=== PATIENT | female | born 1960 | race Caucasian/White ===

== ENCOUNTER 2018-07-31 07:01 | Inpatient (IN) ==
--- NOTE | 2018-07-10 15:24 | Anesthesiology Consultation ---
Date of Service July 10, 2018 Assessment & Plan Chart Review Chart Review: Acceptable Risk for Surgery (PENDING REVIEW OF PREOP TESTING (LABS , EKG, CXR)) and Patient seen in Pre Admission Testing Teaching & Discussion Pre-Anesthesia Teaching/Discussion Notes: Instructed NPO after midnight before surgery,except medications with 15 cc of water. Medication instructions provided according to the PAT guidelines. History Surgery Operation Date: 07/31/18 10:05 Proposed Procedures p L2-L5 Decompression and Fusion - Alex Love DO Height/Weight Height: 5 ft 1 in Weight: 58.6 kg Allergies Allergy/AdvReac Type Severity Reaction Status Date / Time codeine AdvReac Mild N/V Verified 07/10/18 15:36 Penicillins AdvReac Mild DYSPEPSIA Verified 07/10/18 15:36 Medications Home Medications Medication Instructions Recorded Confirmed Last Taken acetaminophen 500 mg PO QID PRN 07/04/18 07/04/18 Unknown naproxen sodium [Aleve] 220 - 440 mg PO BID PRN 07/04/18 07/04/18 Unknown Past Medical History Medical History Spondylolisthesis Thyroid goiter ENT MONITORING Past Surgical History Surgical History History of bunionectomy of both great toes BUNIONECTOMY/REVISION History of lumpectomy of left breast Hx of appendectomy Hx of removal of cyst BREAST Past Anesthesia History No Hx of Anesthesia Complications and No Family Hx of Anesthesia Complications History of PONV No Motion Sickness Screening History of Motion Sickness: No Social History Smoking Status: Current every day smoker tobacco type: cigarettes Smoking cigarettes per day: 1 CIGARETTE/DAY (TRYING TO QUIT; PRIOR HEAVIER USE) X 25 YEARS Do You Dip or Chew Tobacco: No Hx Alcohol Use: Yes alcohol intake frequency: holidays/special occasions only Hx Substance Use: No Exercise / Class Metabolic Activity II 4-5 Yardwork/Stairs/Walk up hill Review of Systems Rare heartburn. URI symptoms improved. Patient denies chest pain, shortness of breath, dyspnea on exertion, wheezing, palpitations. Physical Exam Vital Signs VITALS BP 123/79 P 63 TEMP 97.9 SP02 97%RA RESP 18 Full neck and c-spine range of motion. Full TMJ range of motion. TMD 3 finger breaths Mallampati Score 3 Dentition: full dentures on upper Lungs: clear throughout to auscultation Cardiac: regular rate and rhythm, no murmurs noted Spine: normal Carotid arteries: negative bruit Extremities: no edema
--- NOTE | 2018-07-10 15:25 | PAT Medication Instructions ---
Medication Instructions Date of Service July 10, 2018 Home Medications acetaminophen 500 mg PO QID PRN naproxen sodium [Aleve] 220 - 440 mg PO BID PRN ASK your surgeon for instructions naproxen sodium [Aleve] 220 - 440 mg PO BID PRN Take morning of surgery With a small sip of water, OTHERWISE NOTHING TO EAT OR DRINK AFTER MIDNIGHT: acetaminophen 500 mg PO QID PRN (okay to take up to 4 hours prior to surgery if needed) Other Notes If you have any questions please call us at [phone] or [phone] or [phone] or [phone]
[2018-07-10 15:57] LABS: Basophils # (auto) 0.04 K/uL (0-0.2); Basophils % (auto) 0.5 %; Eosinophils # (auto) 0.41 K/uL (0-0.5); Eosinophils % (auto) 5.1 %; Hematocrit (blood only) 37.3 % (37-47); Hemoglobin 12.3 g/dL (12.0-16.0); Immature Granulocytes # (auto) 0.01 K/uL (0.00-0.02); Immature Granulocytes % (auto) 0.1 %; Lymphocytes # (auto) 3.42 K/uL (1.2-3.4); Lymphocytes % (auto) 42.6 %; Mean Corpuscular Volume 90.1 fL (80-100); Mean Platelet Volume 9.8 fL (7.4-10.4); Monocytes # (auto) 0.56 K/uL (0.11-0.59); Neutrophils # (auto) 3.58 K/uL (1.4-6.5); Neutrophils % (auto) 44.7 %; Platelet Count 280 K/uL (130-400); RDW Coefficient of Variation 14.4 % (11.5-14.5); RDW Standard Deviation 47.3 fL (36.4-46.3); Red Blood Count 4.14 M/uL (4.2-5.4); White Blood Count 8.02 K/uL (4.8-10.8)
--- NOTE | 2018-07-10 16:07 | XRay Report ---
XR chest Pre-admission PA/Lat CLINICAL HISTORY: Preoperative chest COMPARISON STUDY: No previous studies for comparison. FINDINGS: The cardiac and mediastinal contours are normal. There is no evidence of focal pulmonary co nsolidation. There is no evidence of failure. No pleural effusions are visualized.[ IMPRESSION: No active disease in the chest. Electronically signed by: Jermaine Funez M.D. 07/10/2018 4:05 PM
[2018-07-10 16:09] LABS: Partial Thromboplastin Ratio 1.2; Partial Thromboplastin Time 30.8 Seconds (21.0-31.0); Prothrombin Time 10.3 Seconds (9.0-12.0)
[2018-07-10 16:23] LABS: Appearance Urine Clear (Clear); Bacteria Urine Automated Negative (Negative); Bilirubin Urine Negative (Negative); Color Urine Yellow; Epithelial Cell Urine Auto >30 /lpf (0-5); Glucose Urine UA Negative (Negative); Ketones Urine Negative (Negative); Leukocyte Esterase Urine 2+ (Negative); Nitrite Urine Negative (Negative); Protein Urine Negative (Negative); Specific Gravity Urine 1.021 (1.000-1.030); Urobilinogen Urine Negative (Negative); pH Urine 6.5 (4.5-7.5)
[~2018-07-31 07:01] MED LIST: ACETAMINOPHEN 500 MG TAB PO SCH; CLINDAMYCIN 600 MG/54 ML BAG IV SCH; CeleBREX 200 MG CAP PO SCH; GABAPENTIN 300 MG x 2 PO SCH; LR 15ML/HR IV SCH
[2018-07-31] MEDS ORDERED: HYDROmorphone INJ 1 MG/ML SYRINGE IV PRN (08:37)
[2018-07-31] MEDS ORDERED: ATROPINE SULFATE 0.1 MG/ML 10ML SYR IV PRN (08:37)
[2018-07-31] MEDS ORDERED: ONDANSETRON INJ 2 MG/ML 2 ML VIAL IV PRN ×2 (08:37→13:33)
--- NOTE | 2018-07-31 09:08 | History & Physical Bridge Note ---
Date of Service July 31, 2018 History & Physical Bridge Note I have examined the patient, reviewed the History & Physical and in the interval since the performance of the History & Physical I have noted the following changes of clinical significance: no changes noted
--- NOTE | 2018-07-31 09:09 | History & Physical Report ---
Date of Service July 31, 2018 Assessment & Plan (1) Neurogenic claudication due to lumbar spinal stenosis: Lumbar decompression and fusion L2-L5 Present on Admission?: Yes History of Present Illness Chief Complaint: Back and leg pain Primary Care Provider: Debi Tan This is a 58-year-old female that presents with chronic persistent back and leg pain. After failing extensive course of nonoperative care she is here for surgical intervention. Allergies Allergy/AdvReac Type Severity Reaction Status Date / Time codeine AdvReac Mild N/V Verified 07/31/18 07:52 Penicillins AdvReac Mild DYSPEPSIA Verified 07/31/18 07:52 Home Medications Home Medications Medication Instructions Recorded Confirmed Type acetaminophen 500 mg PO QID PRN 07/04/18 07/04/18 History naproxen sodium [Aleve] 220 - 440 mg PO BID PRN 07/04/18 07/31/18 History Past Med/Surg History Social History Current Living Situation: Spouse Other Information That Helps Us Care for You: No Feels Safe at Home: Yes Safety Concerns: Feels Safe At This Time Smoking Status: Current every day smoker Tobacco Type: cigarettes Cigarettes per Day: 1 CIGARETTE/DAY (TRYING TO QUIT; PRIOR HEAVIER USE) X 25 YEARS Do You Dip or Chew Tobacco: No Hx Alcohol Use: Yes Alcohol Intake Frequency: holidays/special occasions only Hx Substance Use: No Beliefs That Will Affect Care: None Preferred Language: Azeri Communication Ability: Effective Physical Exam 2 Vital Signs (Past 24 Hours): Last Vital Signs Temp 36.6 C 07/31/18 08:10 Pulse 85 07/31/18 08:10 Resp 18 07/31/18 08:10 BP 150/82 H 07/31/18 08:10 Pulse Ox 98 07/31/18 08:10 Results & Data Medications Administered Acetaminophen (Tylenol) 1,000 mg PO PREOP HARDIK Stop: 07/31/18 18:00 Last Admin: 07/31/18 07:55 Dose: 1,000 mg Celecoxib (Celebrex) 200 mg PO PREOP HARDIK Stop: 07/31/18 18:00 Last Admin: 07/31/18 07:55 Dose: 200 mg Gabapentin (Neurontin) 600 mg PO PREOP HARDIK Stop: 07/31/18 18:00 Last Admin: 07/31/18 07:55 Dose: 600 mg Lactated Ringer's (Lr) 1,000 mls @ 15 mls/hr IV .Q24H HARDIK Stop: 08/01/18 05:59 Last Admin: 07/31/18 07:56 Dose: 15 mls/hr
[2018-07-31] MEDS ORDERED: fentaNYL citrate 100 MCG/2 ML VIAL ONE (09:23)
[2018-07-31] MEDS ORDERED: MIDAZOLAM HCL 1 MG/ML 2ML VIAL ONE (09:23)
[2018-07-31] MEDS ORDERED: BACITRACIN INJ 50,000 UNIT VIAL ONE (09:24)
[2018-07-31] MEDS ORDERED: BUPIVACAINE/EPINEPHRINE 0.5% MPF 1:200,000 30 ML VIAL ONE (09:24)
[2018-07-31] MEDS ORDERED: KETAMINE HCL INJ 50 MG/ML 10 ML VIAL ONE (09:55)
[2018-07-31] MEDS ORDERED: LIDOCAINE HCL 2% 2 ML VIAL/AMP(20MG/ML) INFIL ONE (10:27)
[2018-07-31] MEDS ORDERED: ONDANSETRON INJ 2 MG/ML 2 ML VIAL ONE ×2 (10:27→10:54)
[2018-07-31] MEDS ORDERED: NEOSTIGMINE METHYLSULFATE 1 MG/ML 10ML VIAL ONE (10:27)
[2018-07-31] MEDS ORDERED: PROPOFOL IV EMULSION 10 MG/ML 20 ML VIAL IV ONE (10:27)
[2018-07-31] MEDS ORDERED: ROCURONIUM BROMIDE 10 MG/ML 5 ML VIAL ONE (10:27)
[2018-07-31] MEDS ORDERED: ePHEDrine sulfate 50 MG/ML SYR ONE (10:27)
[2018-07-31] MEDS ORDERED: GLYCOPYRROLATE 0.2 MG/ML VIAL ONE (10:27)
[2018-07-31] MEDS ORDERED: DEXAMETHASONE SOD INJ 4 MG/ML VIAL ONE (10:27)
[2018-07-31] MEDS ORDERED: PHENYLEPHRINE 100MCG/ML 5ML SYR ONE (10:27)
[2018-07-31] MEDS ORDERED: FLOSEAL HEMOSTATIC MATRIX 10ML TOP ONE (10:46)
[2018-07-31] MEDS ORDERED: HYDROmorphone INJ 2 MG/ML SYR/VIAL ONE (10:54)
--- NOTE | 2018-07-31 12:19 | Operative Report ---
Post Operative Report Pre & Post Diagnosis Operation Date: 07/31/18 09:05 Pre-Op Diagnosis: Lumbar spinal stenosis with spondylolisthesis and neurogenic claudication Post-Op Diagnosis: Same Procedure Operation Date: 07/31/18 09:05 Actual Procedures #1 lumbar decompression medial facetectomy foraminotomies L2-3 L3-4 L4-5. #2 posterior spinal fusion L2-3 L3-4 L4-5. #3 L3-4 L4-5 per #4 interbody fusion L4-5 per #5 place of titanium 12 x 22 mm cage L4-5. #6 placement of local autograft and posterior gutters per #7 placement Feese collagen sponge, mass graft posterior gutters and ostomy up in interbody space. Surgeon Alex Love DO Meat Products Demonstrator Alexsandra Pineda Estimated Blood Loss 200 Findings Consistent with Post-Op Diagnosis Specimens None Description of Procedure Patient was met with preoperatively case discussed all questions addressed. After informed consent obtained patient was taken to the operative suite underwent intubation and placed in a prone position the Yehuda table on top of the George frame. All bony prominences well-padded eyes inspected to ensure no external pressure placed upon the peer at this point the lumbar spine was prepped and draped in a sterile fashion. Sharp dissection with the assistance of Bovie cautery was performed down to and exposing the lamina and transverse process of L2 L3-L4-L5 bilaterally. From a caudal cephalad fashion complete laminectomy of L4 L3 and L2 was performed including bilateral medial facetectomies foraminotomies addressing severe stenosis. Pedicle screws were then placed in L2 L3-L4-L5 bilaterally with assistance of fluoroscopy the purposes annita placed. Through a transforaminal approach on the right complete discectomy of L4-5 was performed in plate coated to subcortical mean bone and a 12 x 22 mm titanium cage filled with ostium bone graft tapped in position. Rods were then locked in final position bilaterally. Transverse processes of L2 L3-L4-L5 bur to subcortical bleeding bone. Infuse collagen sponge mass graft local autograft placed in the posterior gutters. 15 round YVES drain inserted. Incision was then closed with 1 Vicryl fascia 2-0 Vicryl subcutaneous and 4-0 Monocryl for final skin closure. Steri-Strip sterile dressing placed patient will continue to PACU stable disc. Please note Alexsandra Pineda was present at the entire procedure involved in patient positioning complex portions of the surgery and final skin closure. I attest to the content of the Intraoperative Record and any orders documented therein. Any exceptions are noted below.
--- NOTE | 2018-07-31 12:49 | Fluoroscopy Report ---
LUMBAR SPINE, INTRAOPERATIVE FLUOROSCOPY HISTORY: L2-L5 decompression and fusion. FLUOROSCOPY TIME: 29 seconds. FINDINGS: Intraoperative fluoroscopy was provided for the lumbar spine. 2 fluoroscopic spot images we re obtained. Posterior decompression and fusion from L2 through L5 with pedicle screws and rods. The hardware appears intact. IMPRESSION: Fluoroscopy provided for a L2-L5 posterior decompression and fusion. Electronically signed by: Radhames Kohli M.D. 07/31/2018 12:48 PM
--- NOTE | 2018-07-31 13:12 | Anesthesiology Progress Note ---
Date of Service July 31, 2018 Anesthesia Post Procedure Vital Signs Vital Signs: Temp Pulse Pulse Resp BP Pulse Ox 07/31/18 13:05 91 H 13 124/71 98 07/31/18 12:55 84 16 126/62 100 07/31/18 12:45 69 17 116/63 98 07/31/18 12:35 36.6 C 108 H 18 121/70 100 07/31/18 08:10 36.6 C 85 18 150/82 H 98 Notes Mental Status: alert / awake / arousable Patient Amnestic to Procedure: Yes Nausea / Vomiting: adequately controlled Pain: adequately controlled Airway Patency, RR, SpO2: stable & adequate BP & HR: stable & adequate Hydration State: stable & adequate Anesthetic Complications: no major complications apparent
[2018-07-31] MEDS ORDERED: ONDANSETRON 4 MG TAB PO PRN (13:33)
[2018-07-31] MEDS ORDERED: ACETAMINOPHEN 500 MG TAB PO PRN ×2 (13:33)
[2018-07-31] MEDS ORDERED: MAGNESIUM HYDROXIDE SUSP 30 ML UDC PO PRN (13:33)
[2018-07-31] MEDS ORDERED: BISACODYL 10 MG SUPP PR PRN (13:33)
[2018-07-31] MEDS ORDERED: HYDROmorphone INJ 0.5 MG/0.5 ML SYR IV PRN (13:33)
[2018-07-31] MEDS ORDERED: DO NOT ADMINISTER PNEUMOCOCCAL VACCINE PRN (13:33)
[2018-07-31] MEDS ORDERED: LORazepam 0.5 MG/1 ML VIAL IV PRN (13:33)
[2018-07-31] MEDS ORDERED: DO NOT ADMINISTER FLU VACCINE PRN (13:33)
[2018-07-31] MEDS ORDERED: FAMOTIDINE 20 MG TAB PO PRN (13:33)
[2018-07-31] MEDS ORDERED: LORazepam 0.5 MG TAB PO PRN (13:33)
[2018-07-31] MEDS ORDERED: SOD PHOSPHATE/SOD BIPHOSPHATE ENEMA 132 ML BTL PR PRN (13:33)
[2018-07-31] MEDS ORDERED: METOCLOPRAMIDE HCL INJ 5 MG/ML 2 ML VIAL IV PRN (13:33)
[2018-07-31] MEDS ORDERED: ACETAMINOPHEN 1,000 MG/100 ML VIAL IV PRN (13:33)
[2018-07-31] MEDS ORDERED: PROMETHAZINE HCL 12.5 MG in SODIUM CHLORIDE 0.9% 50 ML IV PRN (13:33)
[2018-07-31] MEDS: LACTATED RINGER'S 1,000 ML IV SCH ×2 (13:59→20:22)
[2018-07-31] MEDS: KETOROLAC TROMETHAMINE 15 MG/ML VIAL IV SCH ×2 (16:09→22:05)
[2018-07-31] MEDS: CLINDAMYCIN 600 MG in DEXTROSE 5% 50 ML IV SCH ×2 (16:27→23:35)
[2018-07-31] MEDS: DOCUSATE SODIUM/SENNA 50/8.6MG TAB PO SCH (20:21)
[2018-07-31] MEDS: TRAMADOL HCL 50 MG TABLET PO PRN (20:25)
[2018-07-31] MEDS: OXYCODONE HCL IR 5 MG TAB (IMMEDIATE RELEASE) PO PRN (23:38)
[2018-08-01] MEDS: KETOROLAC TROMETHAMINE 15 MG/ML VIAL IV SCH ×2 (03:35→10:13)
[2018-08-01] MEDS: LACTATED RINGER'S 1,000 ML IV SCH (03:35)
[2018-08-01 05:46] LABS: Hemoglobin 8.5 g/dL (12.0-16.0); Immature Granulocytes # (auto) 0.06 K/uL (0.00-0.02); Immature Granulocytes % (auto) 0.3 %; Lymphocytes # (auto) 1.77 K/uL (1.2-3.4); Lymphocytes % (auto) 9.9 %; Mean Corpuscular Hgb Conc 32.7 g/dL (32-36); Mean Corpuscular Volume 88.7 fL (80-100); Mean Platelet Volume 8.6 fL (7.4-10.4); Monocytes # (auto) 1.29 K/uL (0.11-0.59); Monocytes % (auto) 7.2 %; Neutrophils # (auto) 14.84 K/uL (1.4-6.5); Neutrophils % (auto) 82.6 %; Platelet Count 205 K/uL (130-400); RDW Coefficient of Variation 14.3 % (11.5-14.5); RDW Standard Deviation 46.5 fL (36.4-46.3); Red Blood Count 2.93 M/uL (4.2-5.4); White Blood Count 17.96 K/uL (4.8-10.8)
[2018-08-01] MEDS: POLYETHYLENE (MIRALAX) 17 GM PACK PO SCH ×4 (05:52→23:16)
[2018-08-01 06:09] LABS: Ovalocytes 1+
[2018-08-01 06:15] LABS: BUN Creatinine Ratio 21.3 (10-20); Calcium 7.8 mg/dl (8.5-10.1); Est GFR (African American) 83.9; Est GFR (Non-African American) 72.4
[2018-08-01] MEDS: OXYCODONE HCL IR 5 MG TAB (IMMEDIATE RELEASE) PO PRN ×2 (07:38→20:23)
--- NOTE | 2018-08-01 08:59 | Orthopedic Progress Note ---
Date of Service August 01, 2018 Assessment & Plan (1) Neurogenic claudication due to lumbar spinal stenosis: This time we will continue physical therapy advance her bowel regimen anticipate discharge home this weekend. Present on Admission?: Yes (2) Acute blood loss as cause of postoperative anemia: Present on Admission?: No Subjective Patient's back pain is controlled leg symptoms are markedly improved. Physical Exam 2 Vital Signs (Past 24 Hours): Last Vital Signs Temp 36.9 C 08/01/18 06:56 Pulse 78 08/01/18 06:56 Resp 18 08/01/18 06:56 BP 95/53 L 08/01/18 06:56 Pulse Ox 94 08/01/18 06:56 Physical Exam: Patient is in the chair at the bedside. She has excellent strength testing. Appears comfortable.
--- NOTE | 2018-08-01 09:27 | Anesthesiology Progress Note ---
Date of Service August 01, 2018 Anesthesia Post Procedure Vital Signs Vital Signs: Temp Pulse Pulse Resp BP BP Pulse Ox 08/01/18 06:56 36.9 C 78 18 95/53 L 94 08/01/18 03:27 36.7 C 73 14 95/59 L 95 08/01/18 00:29 80 95/56 L 07/31/18 23:53 36.5 C 67 14 89/50 L 77/34 L 96 07/31/18 19:00 36.2 C L 103 H 18 121/68 100 07/31/18 16:31 36.4 C L 82 16 101/61 100 07/31/18 15:28 36.3 C L 87 18 92/47 L 100 07/31/18 14:36 92 H 18 97/55 L 100 07/31/18 13:56 61 18 94/55 L 99 07/31/18 13:34 36.3 C L 71 18 108/64 100 07/31/18 13:21 63 20 106/56 L 98 07/31/18 13:15 36.6 C 66 13 113/56 L 99 07/31/18 13:05 91 H 13 124/71 98 07/31/18 12:55 84 16 126/62 100 07/31/18 12:45 69 17 116/63 98 07/31/18 12:35 36.6 C 108 H 18 121/70 100 Pain Intensity Back: Pain Intensity: 6 Notes Mental Status: alert / awake / arousable Patient Amnestic to Procedure: Yes Nausea / Vomiting: adequately controlled Pain: adequately controlled Airway Patency, RR, SpO2: stable & adequate BP & HR: stable & adequate Hydration State: stable & adequate Anesthetic Complications: no major complications apparent and Pt Satisfied with anesthetic care
[2018-08-01] MEDS: DOCUSATE SODIUM/SENNA 50/8.6MG TAB PO SCH (20:23)
[2018-08-02] MEDS: ALUMINUM/MAGNESIUM SUSP 30 ML UDC PO PRN (02:20)
[2018-08-02] MEDS: POLYETHYLENE (MIRALAX) 17 GM PACK PO SCH ×2 (05:39→11:35)
--- NOTE | 2018-08-02 08:09 | Consultation ---
Date of Consultation August 02, 2018 Assessment & Plan (1) Hypotension: - Rechecked BP at beside without positive orthostatics: Supine was 112/69 , sitting BP pressure remained 106/68. - Infuse NSS 500 ml bolus now with decreased oral intake - Not on any BP limiting medications, last dose of narcotics was last evening around 1999. - Hgb dropped from 12.3 to 8.5, will recheck Hbg at 1400. - At this time no need for transfusion. If any worsening hypotension or symptoms consider transfusing - Consent, type and screen already obtained. (2) Acute blood loss as cause of postoperative anemia: - Hgb as above, monitoring Hgb at 1400. (3) Tobacco use: - Cessation encouraged, pt denies need for nicotine patch. (4) Spinal stenosis, lumbar region with neurogenic claudication: Status post lumbar decompression and fusion Postop management as per orthopedic surgery (5) Spondylolisthesis: - As per primary team - Agree with bowel regimen. Encourage oral intake. Antiemetics for nausea. - No anticoagulation in setting of spinal surgery - PT/OT consults. Pt has been up walking prior to this episode of hypotension without difficulty. (6) Constipation: - Continue mirilax, dulcolax and colace PO. Encourage ambulation provided that pts BP improves with fluid as above. Supervising Physician Co-Signing Physician Notes MAYANK Supervision Note: I personally saw and examined the patient. I verified all harris points and agree with MAYANK Ramon with the following exceptions and/or additions: Patient reports feeling very well and I saw her this evening. She denies chest pain shortness of breath, denies headache or lightheadedness. Denies abdominal pain or nausea. She is tolerating p.o. She has some pain in the back but it is manageable. She is not lightheaded with changes in position. Her blood pressures are much improved. Vitals reviewed Gen: AAOx3, NAD HEENT: Anicteric sclerae, EOMI CV: RRR no mgr nl S1S2 Pulm: CTAB no wcr Abd: +BS soft NT ND no masses or hernias Ext: No edema, 2+ DP pulses Skin: No rashes, warm/dry Repeat hemoglobin stable from this morning 8.4 This patient is a 58-year-old female with no significant past medical history except for current tobacco use and lumbar neurogenic claudication, here status post lumbar decompression and fusion. Consulted for hypotension which is likely secondary to acute blood loss anemia with a 4 g hemoglobin drop. Patient doing very well now, hemoglobin improved with normal saline bolus and instillation of IV fluids -Can stop IV fluids in the morning -Hospitalist service will sign off at this time. Please consult again if new or acute issues arise. Thank you. History of Present Illness Reason for Consultation: Hypotension Requesting Physician: Dr. Love Attending Physician: Alex Love, DO History of Present Illness This is a 58-year-old female with past medical history of thyroid goiter, breast cyst removal approximately 4 years ago: 1 from right-sided upper outer quadrant and 2 from left-sided lower quadrant, she is a chronic tobacco smoker of 25 years 1 pack/day and is trying to quit, and spondylolisthesis. She presented on 07/31/18 for elective lumbar decompression and fusion by Dr. Love. Prior to surgery the patient had a hemoglobin of 12.3, today upon recheck is found to be decreased at 8.4. She was noted to be hypotensive with BP of 76/41 in the left arm, and was rechecked in the right arm found to be 104/ 64. Medicine was consulted for hypotension. The patient was seen and examined this morning. Patient reports feeling well admits to feeling lightheaded upon sitting up. She has not been eating or drinking quite as well as her baseline, although is able to hold down fluids despite nausea. The patient has not vomited, and reports feeling some abdominal distention which she feels is secondary to no bowel movement x 2 days. She has been using oxycodone 5 mg for pain relief and last took this medication last night at 8 PM. At the bedside I rechecked her blood pressure while lying flat which was 112/69, immediately afterwards I then sat the patient up and her blood pressure remained 106/68. She denied feeling lightheaded that point. Allergies Allergy/AdvReac Type Severity Reaction Status Date / Time codeine AdvReac Mild N/V Verified 07/31/18 07:52 Penicillins AdvReac Mild DYSPEPSIA Verified 07/31/18 07:52 Home Medications Home Medications Medication Instructions Recorded Confirmed Type acetaminophen 500 mg PO QID PRN 07/04/18 07/04/18 History naproxen sodium [Aleve] 220 - 440 mg PO BID PRN 07/04/18 07/31/18 History oxycodone 5 mg PO Q4H PRN #30 tab 08/01/18 Rx tramadol 50 mg PO Q4H PRN #30 tab 08/01/18 Rx Patient History Medical History Constipation Spinal stenosis, lumbar region with neurogenic claudication Spondylolisthesis Tobacco use Hypotension Acute blood loss as cause of postoperative anemia Spondylolisthesis Thyroid goiter ENT MONITORING Surgical History History of bunionectomy of both great toes BUNIONECTOMY/REVISION History of lumpectomy of left breast Hx of appendectomy Hx of removal of cyst BREAST Social History Current Living Situation: Spouse Other Information That Helps Us Care for You: No Feels Safe at Home: Yes Safety Concerns: Feels Safe At This Time Smoking Status: Current every day smoker Tobacco Type: cigarettes Cigarettes per Day: 1 CIGARETTE/DAY (TRYING TO QUIT; PRIOR HEAVIER USE) X 25 YEARS Do You Dip or Chew Tobacco: No Hx Alcohol Use: Yes Alcohol Intake Frequency: holidays/special occasions only Hx Substance Use: No Beliefs That Will Affect Care: None Communication Ability: Effective Review of Systems Constitutional: no fever, no chills, no sweats and no fatigue Eyes: no diplopia and no worsening vision Ear, Nose, Mouth, Throat: no dizziness, no nasal discharge, no facial pain and no sore throat Respiratory: no cough, no dyspnea and no wheezing Cardiovascular: no chest pain, no palpitations, no lightheadedness and no syncope Gastrointestinal: as per Subjective / HPI, + bloating and + constipation; no vomiting Genitourinary (Female): no dysuria, no urinary frequency and no urinary incontinence Musculoskeletal: + back pain (Feels stiff and sore); no joint pain, no swelling and no muscle weakness Integumentary: no rash, no lesions and no wounds Neurologic: no gait abnormality, no falls, no numbness, no dizziness and no syncope Psychiatric: no depression and no anxiety Endocrine: no fatigue Physical Exam 2 Vital Signs (Past 24 Hours): Last Vital Signs Temp 36.9 C 08/02/18 07:45 Pulse 96 H 08/02/18 07:45 Resp 16 08/02/18 07:45 BP 104/64 08/02/18 07:45 Pulse Ox 94 08/02/18 07:45 Physical Exam: General: awake, alert, no apparent distress Head: Normocephalic, atraumatic ENT: PERRL, EOMI, no pharyngeal exudate, mucous membranes moist Chest: Clear to auscultation, on room air, no adventitious breath sounds Cardiac: Regular rate and rhythm, no murmur, no JVD, normal peripheral pulses, good capillary refill Abdominal: NABS x 4 quadrants, soft, nontender to palpation, no rebound, guarding or tenderness Extremities: Normal inspection, no peripheral edema or erythema, calfs nontender to palpation Back: Bandage c/d/i, YVES drain in place. Psych: Normal mood and affect Neuro: AAO x 3, no motor deficits, speech is clear, no peripheral sensory deficits Results & Data Laboratory Results 08/02/18 08/02/18 Range/Units 13:54 08:05 Hgb 8.6 L 8.4 L (12.0-16.0) g/dL Hct 25.5 L (37-47) %
[2018-08-02] MEDS ORDERED: SODIUM CHLORIDE 0.9% 1000ML 500 ML IV ONE (08:12)
[2018-08-02 08:16] LABS: Hematocrit (blood only) 25.5 % (37-47); Hemoglobin 8.4 g/dL (12.0-16.0)
[2018-08-02] MEDS: SODIUM CHLORIDE 0.9% 1000ML 1,000 ML IV SCH ×2 (09:14→19:17)
[2018-08-02] MEDS: TRAMADOL HCL 50 MG TABLET PO PRN ×2 (10:33→20:15)
[2018-08-02] MEDS ORDERED: Nursing to Pharmacy Communication ONE (11:35)
--- NOTE | 2018-08-02 15:05 | Orthopedic Progress Note ---
Date of Service August 02, 2018 Assessment & Plan (1) Neurogenic claudication due to lumbar spinal stenosis: This time we will continue physical therapy monitor her YVES output and consider discharge home Sunday. Present on Admission?: Yes Subjective Patient's back pain is controlled leg symptoms markedly improved. Physical Exam 2 Vital Signs (Past 24 Hours): Last Vital Signs Temp 36.9 C 08/02/18 07:45 Pulse 96 H 08/02/18 07:45 Resp 16 08/02/18 07:45 BP 104/64 08/02/18 07:45 Pulse Ox 94 08/02/18 07:45 Physical Exam: Patient is in the chair at the bedside. She is good strength testing. Appears comfortable.
[2018-08-02] MEDS: DOCUSATE SODIUM/SENNA 50/8.6MG TAB PO SCH (20:15)
[2018-08-03] MEDS: SODIUM CHLORIDE 0.9% 1000ML 1,000 ML IV SCH ×2 (05:10→08:10)
[2018-08-03] MEDS: OXYCODONE HCL IR 5 MG TAB (IMMEDIATE RELEASE) PO PRN (08:55)
--- NOTE | 2018-08-03 09:15 | Orthopedic Progress Note ---
Date of Service August 03, 2018 Assessment & Plan (1) Spinal stenosis, lumbar region with neurogenic claudication: Patient is doing well postoperative day #3. At this point she like to go home. I have reviewed her discharge instructions in detail. We reviewed her medications and pain management as well. We will see her back in the office in approximately 2 weeks. She will call to be seen sooner if she has any increased pain fevers or chills. Subjective Patient is postop day #3 status post L2 L5 decompression fusion. She is doing well at this point she is not having any increase in pain. She generally feels that she is fatigued. She is tolerating p.o. she is had a bowel movement at this point would like to go home. Physical Exam 2 Vital Signs (Past 24 Hours): Last Vital Signs Temp 36.9 C 08/03/18 07:30 Pulse 87 08/03/18 07:30 Resp 16 08/03/18 07:30 BP 128/72 08/03/18 07:30 Pulse Ox 94 08/03/18 07:30 Physical Exam: On exam she is alert and oriented. Her calves are supple nontender abdomen soft and nontender. Strength and sensation both intact. Her dressing is clean dry and intact. YVES drain is placed to 25 cc out last shift.
[2018-08-03] MEDS: ALUMINUM/MAGNESIUM SUSP 30 ML UDC PO PRN (12:02)
--- NOTE | 2018-08-05 11:50 | Discharge Summary ---
Date of Service August 20, 2018 Admission HPI Per Admitting Provider This is a 58-year-old female that presents with chronic persistent back and leg pain. After failing extensive course of nonoperative care she is here for surgical intervention. Discharge Data Consultations 07/31/18 13:33 Consult Case Management - Discharge Planning Routine 08/02/18 07:49 Consult Medical [Consult Internal Medicine] Routine Procedures Performed Operation Date: 07/31/18 09:05 Actual Procedures p L2-L5 Decompression and Fusion, Interbody Cage Insertion L4-L5(Not Applicable) - Alex Love DO
--- NOTE | 2018-08-19 14:15 | Discharge Summary ---
Date of Service August 19, 2018 Admission HPI Per Admitting Provider This is a 58-year-old female that presents with chronic persistent back and leg pain. After failing extensive course of nonoperative care she is here for surgical intervention. Principal Diagnosis Lumbar spinal stenosis with neurogenic claudication Discharge Data Allergies Allergy/AdvReac Type Severity Reaction Status Date / Time codeine AdvReac Mild N/V Verified 07/31/18 07:52 Penicillins AdvReac Mild DYSPEPSIA Verified 07/31/18 07:52 Consultations 07/31/18 13:33 Consult Case Management - Discharge Planning Routine 08/02/18 07:49 Consult Medical [Consult Internal Medicine] Routine Procedures Performed Operation Date: 07/31/18 09:05 Actual Procedures p L2-L5 Decompression and Fusion, Interbody Cage Insertion L4-L5(Not Applicable) - Alex Love DO Ordered Studies 07/31/18 09:05 FL fluoroscopy <1hr Routine FL lumbar spine 2-3V Routine Hospital Course (1) Spinal stenosis, lumbar region with neurogenic claudication: Patient underwent multilevel lumbar decompression fusion tolerated this well was taken to the orthopedic floor postoperative. Postop day and when she was up and ambulating progressive postop day #2 posterior to #3 YVES drain decreasing appropriately but she progressed appropriately subsequently discharged home. Discharge orders and instructions found in the chart for further review. Total Time Total Time Spent Total Time Spent (In Minutes): Not applicable Discharge Plan Discharge Items Patient Disposition: Home - Self-Care Reason For Visit: LUMBAR SPONDYLOLISTHESIS Discharge Diagnosis: lumbar stenosis Discharge Goals: Improve function Activity: Per 'Additional Instructions' section Non-emergency contact: Primary Care Provider Call non-emergency contact if: you have any medication questions Follow-up/Referrals: Debi Tan D.O. [Primary Care Provider] - Diet: Regular Addtl Provider Instructions: ACTIVITY RECOMMENDATIONS: SELF CARE INSTRUCTIONS AFTER THORACIC/LUMBAR FUSIONS 1. You may walk to your tolerance. It is good exercise for your legs and back. Expect some back and intermittent leg aches and pains. 2. You may perform "counter-top" level activities (make a sandwich, alanis with a project, etc.). 3. No bending or lifting of more than 10 pounds or back twisting of any nature (roll like a log when turning in bed). 4. You may ride in a car for 20-30 minutes at a time. No driving until after your first visit with your doctor. 5. Frequent changes of position and restricting sitting to 30 minutes at a time will help limit the amount of back spasms and stiffness you may experience. 6. You may discontinue the use of ambulatory aids (cane, crutches, etc.) once your strength and confidence allow. 7. You may clinical scientist the shower and let water strike your incision when you arrive home at least once daily. Do not take a tub bath, sit in a hot tub or go into a swimming pool until after your first recheck in the office. SPECIAL CARE INSTRUCTIONS: VERY IMPORTANT TO READ AND REVIEW A. Your surgical incision has been closed with a cosmetic suture under the skin that will dissolve in about 6 weeks. In 14 days, you can use a pair of clean scissors and cut the suture that is left outside of the skin at the ends of your incision. 1. The small skin tapes can be removed 7 days after surgery if they have not fallen off by that point. 2. You may keep the wound open to air as much as possible to promote healing after post-op day number 5 unless told otherwise by your doctor. 3. If you think the wound looks like it is becoming infected (redness or worsening drainage) and/or you are experiencing fever, chill or worsening back pain and muscle spasms, contact the office so that we may evaluate you as soon as possible. B. Complications are uncommon, but please contact us if you have any signs or symptoms of: 1. wound infection (fever higher than 102.5 degrees F, redness, separation of wound, drainage, or increasing pain from the incision) 2. blood clots in legs (pain, swelling, redness and warmth in legs) 3. urinary tract infection (fever higher than 102.5 degrees F, burning upon urination or increased frequency of urination) 4. nerve problems (inability to walk on your toes or heels, numbness, loss of bowel or bladder control) 5. any other symptoms that concern you C. Please call the office at if you have any concerns or questions about your operation or recovery. D. No smoking! Smoking drastically decreases the chance of a solid fusion. E. Do not take any anti-inflammatory medications (Indocin, Advil, Motrin, Aspirin, Naprosyn, etc.) as these may inhibit the chance of a solid fusion. Tylenol is okay to take for pain. MANAGING PAIN AFTER SPINAL SURGERY 1. Narcotic medication is intended for short-term use and will be provided for surgical pain. Surgical pain usually lasts for a period of 4-6 weeks. Narcotic medication includes Percocet, Vicodin, Darvocet, Tylenol #3 or Lortab. 2. Longer-term pain is more appropriately treated with non-narcotic medication such as Tylenol ES. 3. Muscle spasm is not appropriately treated with narcotics. Muscle relaxers such as Soma, Flexeril or Skelaxin can be used along with Tylenol ES. 4. Remember that we all live with some "aches and pains". This is not unusual or uncommon after an injury or as we get older. a. Back pain is expected and may include muscle spasms for 4 to 6 weeks after surgery. The pain should gradually improve. If the pain worsens for no apparent reason, please contact the office. b. Intermittent leg pain may also be experienced and should not be concerned about unless it worsens for no apparent reason. If so, please contact the office. 5. We will provide appropriate medication within the normal guidelines of their prescribed use. We will also be very cautious and aware of potential abuse and extended duration of patients' medication needs. a. Pain medications are for your comfort and to assist with sleep and rest so that the tissue can heal. They are not provided in order to return to normal activity and should not be used through the day. To do so or worsening pain at night can result from ongoing tissue damage and development of tolerance to the prescribed medicine. 6. Please allow 2-3 days to process refills. Prescriptions will not be mailed but must be picked up at the office. FOLLOW UP VISIT: Keep your scheduled follow-up appointment. Any questions, please call the office at . Prescriptions: New tramadol 50 mg Tablet 50 mg PO Q4H PRN (Reason: Pain, Moderate) Qty: 30 RF: 0 oxycodone 5 mg Tablet 5 mg PO Q4H PRN (Reason: Pain, Severe) Qty: 30 RF: 0 Continued acetaminophen 500 mg Tablet 500 mg PO QID PRN (Reason: Pain) RF: 0 Discontinued naproxen sodium [Aleve] 220 mg Tablet 220 - 440 mg PO BID PRN (Reason: Pain) RF: 0 Stand-Alone Forms: [facility] [place], [facility] Discharge Orders: Discharge Order (Routine); Ordered 08/03/18 Ordered By: Everton Henderson Admission Data Admit Date/Time: 07/31/18 12:24 Attending Provider: Alex Love Admit Provider: Alex Love Primary Care Provider: Debi Tan Other Providers: Sugey Mancia Service: Surgical Services Other Interventions: Discharge Summary Assessment (RN) Last Done: 08/03/18 09:58 DC Date/Time DO NOT enter until pt leaves facility: 08/03/18 13:15
== END 2018-08-03 13:15 | disposition home or self-care (01) | DRG 454 ==
LOC: ASU 07:01 → 3E 12:24